=== PATIENT | male | born 1980 | race Caucasian/White ===

== ENCOUNTER 2021-07-10 20:10 | Inpatient (IN) | payer MEDICARE, MEDICAID, SELFPAY ==
[2021-07-10 21:29] VITALS: BMI 57.4
[2021-07-10 21:31] VITALS: BP 160/96; PULSE 70; RESP 19; TEMP 36.7; O2SAT 94
[2021-07-10 22:00] VITALS: BP 160/96; PULSE 70; RESP 19; TEMP 36.6; O2SAT 94
[2021-07-10] MEDS: nicotine 2 mg Gum BUCCAL (22:16)
[2021-07-11 03:35] VITALS: PULSE 82; PULSE 85; RESP 19; O2SAT 95
[2021-07-11] MEDS: nicotine 2 mg Gum BUCCAL ×7 (04:43→19:37)
[2021-07-11 06:00] VITALS: BP 119/77; PULSE 71; RESP 16; TEMP 36.8; O2SAT 97
[2021-07-11 06:44] LABS: Glucose Point of Care 182 mg/dL (70-110)
--- NOTE | 2021-07-11 10:57 | PM.NHP ---
Providers/Chief Complaint Admitting Physician: Enrique Francois MD Chief Complaint: SI HPI NPU History of Present Illness Fabian Valdovinos is a 40 year old male with a history of psychotic illness transferred from the [facility] ED due to psychosis, suicidal and homicidal ideation, and plans to overdose on [place] and EtOH. He was medically stabilized and cleared at [facility] ED prior to transfer. The ED note states: Fabian Valdovinos is a 40-year-old male with a history of DM, HLD, HTN, and morbid obesity presenting to the ED via POV C/0 SI/HI onset today. Patient also complains of chronic memory loss, insomnia, DAVILA, violent outbursts and dizziness. Patient reports of current Rx of Lexapro, gabapentin, and Abilify. Patient currently reports of plan of suicide by overdose of Victoria and EtOH. He reports of recent hospitalization in [place] due to psychotic event. Patient denies fever, cough, or any other pertinent complaint. Additional information from [facility] includes EKG which was sinus rhythm, probable left atrial enlargement, and nonspecific T abnormalities, in the inferior leads. Head CT on 07/08/2021 shows no acute intracranial abnormality. Labs: CMP shows glucose of 180 and is otherwise normal. Salicylate, acetaminophen, and ethanol levels were all negative. SARS-CoV-2 test was negative. TSH was normal at 2.370. Urine drug screen was negative for all substances tested. CBC was normal. Troponin was negative. The [facility] ED also sent in affidavit from Guru Webster MD dated 07/10/2021 which states: Patient presented to the emergency department for evaluation of homicidal thoughts, and some tangential thinking. He does warrant emergency psychiatric stabilization for his own safety, and the safety of the community. The patient describes his understanding of his issues as follows. He says that he has severe insomnia due to a thought process that would not slow down. He has the thought that people can read his mind, and that they could shake his hand and electrocuted him. He feels that people are out to get him. He feels that shooting himself is the only way of the suffering caused by the symptoms. 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 He says the position has a split shift, working some in the morning and some in the afternoon. He does not feel he is able to manage the stress of this request. He says he stopped drinking alcohol, using medical marijuana and smoking cigarettes 11 days ago. He reports psychiatric diagnoses of bipolar 2 disorder with psychosis, inattentive ADHD, KEELEY, and PTSD. He estimates he has had 30 or more hospitalizations since the age of 20. He was last hospitalized in [place] about a year ago for psychosis. Psychiatric history: As above. Substance use history: As above. Family history: Patient says that his father abused alcohol and was violent. Otherwise he denies mental health or addiction issues on either side of the family and denies suicide attempts or completions in the family. Psychosocial history: He says he was raised in both [place], [place] and then graduated from high school in [place], [place]. He attended some college. 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 He feels he is unable to work at this point and wants to apply for disability. He says he has never been and has no children. Legal history: No legal difficulties. Medical history: Morbid obesity, diabetes mellitus, hypertension, hypothyroidism, hypercholesterolemia. Meds NPU Home Medications Medication Instructions Recorded Confirmed Last Taken Type albuterol sulfate 2 puff INHALATION QID 07/10/21 07/10/21 07/10/21 08:00 History amlodipine 10 mg PO DAILY 07/10/21 07/10/21 07/10/21 08:00 History aripiprazole 30 mg PO DAILY 07/10/21 07/10/21 07/08/21 08:00 History ozcvoexkfv-gzubiiktsbvpa-tmsl 1 cap PO BID 07/10/21 07/10/21 07/08/21 08:00 History cyclobenzaprine 5 mg PO TID 07/10/21 07/10/21 06/26/21 History 08 docusate sodium 100 mg PO BID 07/10/21 07/10/21 07/10/21 08:00 History empagliflozin [Jardiance] 25 mg PO DAILY 07/10/21 07/10/21 07/09/21 08:00 History fluvoxamine 50 mg PO BID 07/10/21 07/10/21 07/10/21 08:00 History furosemide 40 mg PO DAILY 07/10/21 07/10/21 07/10/21 08:00 History gabapentin 300 mg PO BID 07/10/21 07/10/21 07/10/21 08:00 History guanfacine 1 mg PO DAILY 07/10/21 07/10/21 07/09/21 20:00 History hydrocodone-acetaminophen 1 tab PO BID 07/10/21 07/10/21 06/26/21 08:00 History liraglutide [Victoza 3-Paul] mg SUBCUT DIRECTED 07/10/21 07/07/21 08:00 History lisinopril 40 mg PO DAILY 07/10/21 07/10/21 07/10/21 08:00 History metformin 1,000 mg PO BID 07/10/21 07/10/21 07/10/21 08:00 History mirtazapine 30 mg PO DAILY 07/10/21 07/10/21 07/09/21 20:00 History naloxone [Narcan] 1 spray INTRANASAL PRN 07/10/21 07/10/21 Unknown History orphenadrine citrate 100 mg PO BID PRN 07/10/21 07/10/21 Unknown History pantoprazole 20 mg PO DAILY 07/10/21 07/10/21 07/10/21 08:00 History rizatriptan 10 mg TRANSLINGUAL DIRECTED 07/10/21 07/10/21 07/07/21 08:00 History simvastatin 20 mg PO DAILY 07/10/21 07/10/21 07/09/21 17:00 History thyroid (pork) [Tilly Thyroid] 120 mg PO DAILY 07/10/21 07/10/21 07/08/21 06:00 History Allergies Allergy/AdvReac Type Severity Reaction Status Date / Time haloperidol [From Haldol] Allergy Severe ALGY-Difficulty Verified 07/10/21 23:24 Breathing fluphenazine [From Prolixin] Allergy ALGY-Difficulty Verified 07/10/21 23:26 Breathing paliperidone [From Invega] Allergy ALGY-Difficulty Verified 07/10/21 23:25 Breathing ziprasidone [From Geodon] Allergy ALGY-Difficulty Verified 07/10/21 23:25 Breathing Mental Status Exam MSE Comments: I met with the patient in the day room. He was dressed in hospital scrubs and appropriately groomed, and noticeably overweight. He was calm, cooperative, interactive, and made good eye contact. No psychomotor agitation or retardation. Speech is at a regular rate and rhythm, normal volume, good articulation, not pressured. Alert, oriented to person, place, time, situation. Attention and concentration were intact. Able to spell the word WORLD correctly forwards and backwards. Memory is intact. Remembers 3/3 words immediately and 3/3 at 3 minutes. He knows the names of the past 4 presidents. Mood is depressed and anxious, but he says he is feeling relieved now that he is in the hospital. Affect is pleasant. Thought process is logical and goal-directed. Thought content: Denies auditory and visual hallucinations. He has paranoid delusions of persecution and that people can read his mind. No current suicidal ideation in the hospital, but he was feeling acutely suicidal prior to admission. He is also reported to have had homicidal ideation. Insight and judgment appear to be fair. Vitals/I&O/Wt Last Vital Signs Temp 98.3 F 07/11/21 06:00 Pulse 71 07/11/21 06:00 Resp 16 07/11/21 06:00 BP 119/77 07/11/21 06:00 Pulse Ox 97 07/11/21 06:00 Weight last 48 hrs Weight 186.88 kg A&P Assessment and plan (1) Bipolar disorder with psychotic features: Status: Acute (2) Suicidal ideation: Status: Acute (3) Homicidal ideation: Status: Acute Additional A&P Information Fabian Valdovinos is a 40 year old male with a history of psychotic illness transferred from the [facility] ED due to psychosis, suicidal and homicidal ideation, and plans to overdose on Victoria and EtOH. RECOMMENDATION AND PLAN: 1. Continue current medication. He was started on Latuda, in addition to Abilify. We will titrate Latuda up, and then taper Abilify down. 2. Continue every 15 minute checks for safety. 3. Encourage individual, group and milieu therapies. 4. Encourage sober living treatment after discharge at the highest level of care to which he is willing to commit. Attestations NPU Medical Necessity Statement*: Psychiatric hospitalization is medically necessary to prevent access to lethal means, to reevaluate medication, and to coordinate a safe discharge. Patient will be in the hospital for over 2 midnights. Likely length of stay is 3 to 5 days. Coding Level of Care Code Acute Preschool Teacher for [facility] Fwd Diagnoses Bipolar disorder with psychotic features F31.9 Suicidal ideation R45.851 Homicidal ideation R45.208
--- NOTE | 2021-07-11 12:19 | NPU.GN ---
[facility] Group Topic:Thought Processing General Mood of Group: The patient come to group willingly. The patient was on time, good hygiene and properly dressed. The group discussed how the mind thinks and discussed negative thoughts and how we process those negative thoughts. The patient did participate in the group. The patient were all gave a thought table to be able to list specific negative thoughts and were able to come up with different ways to cope with those thoughts. The group was able to go outside for fresh air, which in turn helped the group to open up more. Information about the NPU was discussed, information about the routine for NPU, the doctor and nursing staff as well as forensic social worker and how they each play a part in their care while here. 96 hr holds and 21 day holds were also explained as well.
[2021-07-11 14:00] VITALS: BP 168/104; PULSE 72; RESP 18; TEMP 36.1; O2SAT 92
[2021-07-11] MEDS: cyclobenzaprine 10 mg Tablet 5 MG PO (17:16)
[2021-07-11] MEDS: docusate sodium 100 mg Capsule PO (17:16)
[2021-07-11] MEDS: gabapentin 300 mg Capsule PO (17:16)
[2021-07-11] MEDS: metformin 500 mg Tablet 1000 MG PO (17:17)
[2021-07-11] MEDS: hyDROXYzine 25 mg Capsule 50 MG PO (18:56)
--- NOTE | 2021-07-11 18:56 | PC.NURSE ---
Administered Vistaril 50mg PO for patient C/O increasing anxiety.
[2021-07-11] MEDS: trazodone 50 mg Tablet PO (19:38)
[2021-07-11 20:06] VITALS: BP 151/90; PULSE 75; RESP 20; TEMP 37.3; O2SAT 95
[2021-07-11 20:17] LABS: Glucose Point of Care 138 mg/dL (70-110)
[2021-07-12 06:00] VITALS: BP 137/83; PULSE 76; RESP 16; TEMP 36.5; O2SAT 97
[2021-07-12] MEDS: nicotine 2 mg Gum BUCCAL ×7 (06:46→21:02)
[2021-07-12 06:54] LABS: Glucose Point of Care 164 mg/dL (70-110)
[2021-07-12] MEDS: gabapentin 300 mg Capsule PO ×2 (08:24→17:34)
[2021-07-12] MEDS: ARIPiprazole 30 mg Tablet PO (08:24)
[2021-07-12] MEDS: FUROsemide 40 mg Tablet PO (08:24)
[2021-07-12] MEDS: lisinopril 20 mg Tablet 40 MG PO (08:24)
[2021-07-12] MEDS: docusate sodium 100 mg Capsule PO ×2 (08:24→17:34)
[2021-07-12] MEDS: metformin 500 mg Tablet 1000 MG PO ×2 (08:24→17:34)
[2021-07-12] MEDS: amlodipine 10 mg Tablet PO (08:24)
[2021-07-12] MEDS: guanfacine 1 mg Tablet PO (08:24)
[2021-07-12] MEDS: pantoprazole DR 40 mg Tablet PO (08:25)
[2021-07-12] MEDS: atorvastatin 40 mg Tablet 20 MG PO (08:25)
[2021-07-12] MEDS: thyroid 60 mg Tablet 120 MG PO (10:03)
[2021-07-12 14:00] VITALS: BP 138/108; PULSE 87; RESP 20; TEMP 36.8; O2SAT 98
--- NOTE | 2021-07-12 15:39 | PM.NPN ---
Subjective NPU Subjective: Interval history: I met with the treatment team to discuss the patient's progress. Mae says he talked in group about some cognitive difficulties he has had throughout his life. They say he is not wanting to transition to a longer term care facility. The patient says that he is feeling better and feels safe here. He says he still needs to make sure the electric circuit box in my head does not turn on. He says his mood is better. He still feels anxious, and would like his Vistaril scheduled, because it does help him for anxiety. He slept okay with trazodone. He does report that he has had difficulty concentrating and Strattera 40 mg daily has helped him in the past. He denies side effects from his current medication. He denies suicidal and homicidal ideation. He says that he has not had voices or seeing things in the last day. Mental Status Exam MSE Comments: I met with the patient in the hallway. He was dressed in hospital scrubs and appropriately groomed, and noticeably overweight. He was calm, friendly cooperative, interactive, and made good eye contact. No psychomotor agitation or retardation. Speech is at a regular rate and rhythm, at a normal volume, deliberate with good articulation, not pressured. Alert, oriented to person, place, time, situation. Attention and concentration were intact to exam. Memory is adequate for the interview. Mood is improving. Affect is serious but pleasant. Thought process is logical and goal-directed. Thought content: Denies auditory and visual hallucinations. He has paranoid delusions of persecution and that people can read his mind and perhaps electrocute him. No current suicidal ideation in the hospital, but he was feeling acutely suicidal prior to admission. He is also reported to have had homicidal ideation. Insight and judgment appear to be fair. Vitals/I&O/Wt Last Vital Signs Temp 97.7 F 07/12/21 20:29 Pulse 88 07/12/21 20:50 Resp 16 07/12/21 20:50 BP 136/79 07/12/21 20:29 Pulse Ox 94 07/12/21 20:50 A&P Assessment and plan (1) Bipolar disorder with psychotic features: Status: Acute (2) Homicidal ideation: Status: Acute (3) Suicidal ideation: Status: Acute Additional A&P Information Fabian Valdovinos is a 40 year old male with a history of psychotic illness transferred from the [facility] ED due to psychosis, suicidal and homicidal ideation, and plans to overdose on [place] and EtOH. RECOMMENDATION AND PLAN: 1. Continue current medication. Scheduled Vistaril 50 mg 3 times daily for anxiety. We are considering adding Strattera for ADHD symptoms. He was started on Latuda, in addition to Abilify. We will titrate Latuda up, and then taper Abilify down. 2. Continue every 15 minute checks for safety. 3. Encourage individual, group and milieu therapies. 4. Encourage sober living treatment after discharge at the highest level of care to which he is willing to commit. Attestations NPU Medical Necessity Statement*: Psychiatric hospitalization is medically necessary to prevent access to lethal means, to reevaluate medication, and to coordinate a safe discharge. Likely length of stay is 2 to 4 days. Coding Level of Care Code Acute Junior Network Administrator for [facility] Diagnoses Bipolar disorder with psychotic features F31.9 Homicidal ideation R45.850 Suicidal ideation R45.856
[2021-07-12 17:20] VITALS: PULSE 94; RESP 18; O2SAT 97
[2021-07-12] MEDS: albuterol 8 gm MDI 2 PUFF INHALATION ×2 (17:20→20:50)
[2021-07-12] MEDS: hyDROXYzine 25 mg Capsule 50 MG PO ×2 (17:34→21:01)
[2021-07-12 20:29] VITALS: BP 136/79; PULSE 83; RESP 17; TEMP 36.5; O2SAT 96
[2021-07-12 20:50] VITALS: PULSE 88; RESP 16; O2SAT 94
[2021-07-12] MEDS: trazodone 50 mg Tablet PO (21:01)
--- NOTE | 2021-07-12 21:15 | PC.NURSE ---
pt requested sleep med be given with HS med, Trazodone 50mg po given.
--- NOTE | 2021-07-12 22:00 | PC.NURSE ---
pt resting quietly with both eyes closed, c-pap in place, 1:1 sitter at side.
[2021-07-13] VITALS (7 sets, daily range): BP systolic 136–146; BP diastolic 79–83; PULSE 84–99; RESP 16–18; TEMP 36.5–36.6; O2SAT 94–98
[2021-07-13] MEDS: nicotine 2 mg Gum BUCCAL ×3 (04:47→21:50)
[2021-07-13] MEDS: albuterol 8 gm MDI 2 PUFF INHALATION ×3 (08:11→21:50)
[2021-07-13] MEDS: gabapentin 300 mg Capsule PO ×2 (08:14→17:26)
[2021-07-13] MEDS: docusate sodium 100 mg Capsule PO ×2 (08:14→17:26)
[2021-07-13] MEDS: ARIPiprazole 30 mg Tablet PO (08:14)
[2021-07-13] MEDS: thyroid 60 mg Tablet 120 MG PO (08:14)
[2021-07-13] MEDS: lisinopril 20 mg Tablet 40 MG PO (08:14)
[2021-07-13] MEDS: FUROsemide 40 mg Tablet PO (08:14)
[2021-07-13] MEDS: metformin 500 mg Tablet 1000 MG PO ×2 (08:14→17:26)
[2021-07-13] MEDS: pantoprazole DR 40 mg Tablet PO (08:15)
[2021-07-13] MEDS: atorvastatin 40 mg Tablet 20 MG PO (08:15)
[2021-07-13] MEDS: hyDROXYzine 25 mg Capsule 50 MG PO ×3 (08:15→21:36)
[2021-07-13] MEDS: amlodipine 10 mg Tablet PO (08:15)
[2021-07-13] MEDS: guanfacine 1 mg Tablet PO (08:16)
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
[2021-07-14 05:23] VITALS: BP 146/83; PULSE 99; RESP 18; TEMP 36.6; O2SAT 98
[2021-07-14 06:15] VITALS: BP 146/83; PULSE 99; RESP 18; TEMP 36.6; O2SAT 98
[2021-07-14] MEDS: guanfacine 1 mg Tablet PO (08:26)
[2021-07-14] MEDS: nicotine 2 mg Gum BUCCAL ×3 (08:26→15:56)
[2021-07-14] MEDS: hyDROXYzine 25 mg Capsule 50 MG PO ×2 (08:27→15:56)
[2021-07-14] MEDS: thyroid 60 mg Tablet 120 MG PO (08:27)
[2021-07-14] MEDS: gabapentin 300 mg Capsule PO (08:27)
[2021-07-14] MEDS: atorvastatin 40 mg Tablet 20 MG PO (08:27)
[2021-07-14] MEDS: metformin 500 mg Tablet 1000 MG PO (08:27)
[2021-07-14] MEDS: docusate sodium 100 mg Capsule PO (08:27)
[2021-07-14] MEDS: amlodipine 10 mg Tablet PO (08:27)
[2021-07-14] MEDS: lisinopril 20 mg Tablet 40 MG PO (08:27)
[2021-07-14] MEDS: pantoprazole DR 40 mg Tablet PO (08:27)
[2021-07-14] MEDS: FUROsemide 40 mg Tablet PO (08:27)
[2021-07-14] MEDS: ARIPiprazole 30 mg Tablet PO (08:27)
[2021-07-14] MEDS: albuterol 8 gm MDI 2 PUFF INHALATION ×2 (09:40→13:44)
[2021-07-14 09:41] VITALS: PULSE 94; RESP 17; O2SAT 97
--- NOTE | 2021-07-14 12:39 | PM.NDC ---
Diagnoses at Discharge Discharge Diagnosis (1) Bipolar disorder with psychotic features: Status: Acute (2) Homicidal ideation: Status: Resolved (3) Suicidal ideation: Status: Acute Reason for Visit Reason for Visit: SI Brief History: Fabian Valdovinos is a 40 year old male with a history of psychotic illness transferred from the [facility] ED due to psychosis, suicidal and homicidal ideation, and plans to overdose on [place] and EtOH. He was medically stabilized and cleared at [facility] ED prior to transfer. The ED note states: Fabian Valdovinos is a 40-year-old male with a history of DM, HLD, HTN, and morbid obesity presenting to the ED via POV C/0 SI/HI onset today. Patient also complains of chronic memory loss, insomnia, DAVILA, violent outbursts and dizziness. Patient reports of current Rx of Lexapro, gabapentin, and Abilify. Patient currently reports of plan of suicide by overdose of [place] and EtOH. He reports of recent hospitalization in [place] due to psychotic event. Patient denies fever, cough, or any other pertinent complaint. Additional information from [facility] includes EKG which was sinus rhythm, probable left atrial enlargement, and nonspecific T abnormalities, in the inferior leads. Head CT on 07/08/2021 shows no acute intracranial abnormality. Labs: CMP shows glucose of 180 and is otherwise normal. Salicylate, acetaminophen, and ethanol levels were all negative. SARS-CoV-2 test was negative. TSH was normal at 2.370. Urine drug screen was negative for all substances tested. CBC was normal. Troponin was negative. The [facility] ED also sent in affidavit from Guru Webster MD dated 07/10/2021 which states: Patient presented to the emergency department for evaluation of homicidal thoughts, and some tangential thinking. He does warrant emergency psychiatric stabilization for his own safety, and the safety of the community. The patient describes his understanding of his issues as follows. He says that he has severe insomnia due to a thought process that would not slow down. He has the thought that people can read his mind, and that they could shake his hand and electrocuted him. He feels that people are out to get him. He feels that shooting himself is the only way of the suffering caused by the symptoms. 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 He says the position has a split shift, working some in the morning and some in the afternoon. He does not feel he is able to manage the stress of this request. He says he stopped drinking alcohol, using medical marijuana and smoking cigarettes 11 days ago. He reports psychiatric diagnoses of bipolar 2 disorder with psychosis, inattentive ADHD, KEELEY, and PTSD. He estimates he has had 30 or more hospitalizations since the age of 20. He was last hospitalized in [place] about a year ago for psychosis. Psychiatric history: As above. Substance use history: As above. Family history: Patient says that his father abused alcohol and was violent. Otherwise he denies mental health or addiction issues on either side of the family and denies suicide attempts or completions in the family. Psychosocial history: He says he was raised in [place], [place] and then graduated from high school in [place], [place]. He attended some college. 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 He feels he is unable to work at this point and wants to apply for disability. He says he has never been and has no children. Legal history: No legal difficulties. Medical history: Morbid obesity, diabetes mellitus, hypertension, hypothyroidism, hypercholesterolemia. Hospital Course Hospital Course The patient was admitted to the neuropsychiatric unit for definitive treatment of these issues. On the unit he slowly acclimated to the individual, group and milieu therapies. There were some mild psychotic symptoms present initially which resolved with the medication being restarted. He was receptive to treatment team recommendations and showed modest improvement and was able to contract for safety prior to discharge. During the hospitalization, patient had routine laboratory studies which were within normal limits except for few outliers. Additionally there was a general medical evaluation which was also within normal limits and revealed no new acute processes. Vistaril was changed to 50 mg 3 times a day on a scheduled basis. Discharge Summary: At the time of discharge, psychosis and lethality were denied. Mood and anxiety were well managed. Patient endorsed a plan to avoid all drugs of abuse and follow-up with the aftercare recommendations of the treatment team. Patient was evaluated and deemed to be absent credible lethality, and had achieved the maximum benefit from an inpatient hospitalization, so was discharged. Mental Status Exam MSE Comments: I met with the patient in the day room. He was dressed in hospital scrubs and appropriately groomed, and noticeably overweight. He was calm, friendly cooperative, interactive, and made good eye contact. No psychomotor agitation or retardation. Speech is at a regular rate and rhythm, at a normal volume, deliberate with good articulation, not pressured. Alert, oriented to person, place, time, situation. Attention and concentration were intact to exam. Memory is adequate for the interview. Mood is improving. Affect continues to be serious but pleasant. Thought process is logical and goal-directed. Thought content: Denies auditory and visual hallucinations. Paranoid delusions of persecution and that people are diminishing. No current suicidal ideation or homicidal ideation. Insight and judgment appear to be fair. Discharge Data Vitals: Last Vital Signs Temp 97.9 F 07/14/21 06:15 Pulse 94 07/14/21 09:41 Resp 17 07/14/21 09:41 BP 146/83 07/14/21 06:15 Pulse Ox 97 07/14/21 09:41 Discharge Plan Discharge Patient Disposition: Home Condition: Stable Prescriptions: New hydroxyzine pamoate 25 mg Capsule 50 mg PO TID 30 Days Qty: 180 RF: 0 Continued furosemide 40 mg tablet 40 mg PO DAILY 30 Days Qty: 30 RF: 0 pantoprazole 20 mg tablet,delayed release (DR/EC) 20 mg PO DAILY 30 Days Qty: 0 RF: 0 amlodipine 10 mg tablet 10 mg PO DAILY 30 Days Qty: 30 RF: 0 rizatriptan 10 mg tablet,disintegrating 10 mg translingual DIRECTED 30 Days Qty: 30 RF: 0 simvastatin 20 mg tablet 20 mg PO DAILY 30 Days Qty: 30 RF: 0 metformin 1,000 mg tablet 1,000 mg PO BID 30 Days Qty: 60 RF: 0 guanfacine 1 mg tablet 1 mg PO DAILY 30 Days Qty: 30 RF: 0 orphenadrine citrate 100 mg tablet extended release 100 mg PO BID PRN (Reason: Muscle Spasm) 30 Days Qty: 60 RF: 0 docusate sodium 100 mg capsule 100 mg PO BID 30 Days Qty: 60 RF: 0 gabapentin 300 mg capsule 300 mg PO BID 30 Days Qty: 60 RF: 0 fluvoxamine 50 mg tablet 50 mg PO BID 30 Days Qty: 60 RF: 0 albuterol sulfate 90 mcg/actuation HFA aerosol inhaler 2 puff INHALATION QID 30 Days Qty: 8.5 RF: 0 lisinopril 40 mg tablet 40 mg PO DAILY 30 Days Qty: 30 RF: 0 aripiprazole 30 mg tablet 30 mg PO DAILY 30 Days Qty: 30 RF: 0 cyclobenzaprine 5 mg tablet 5 mg PO TID 30 Days Qty: 90 RF: 0 Phyllis Thyroid 120 mg tablet 120 mg PO DAILY 30 Days Qty: 30 RF: 0 Jardiance 25 mg tablet 25 mg PO DAILY 30 Days Qty: 30 RF: 0 Discontinued qfympsfybe-jjdbtzzrwxlpk-kerg 50-300-40 mg capsule 1 cap PO BID RF: 0 Narcan 4 mg/actuation spray,non-aerosol 1 spray INTRANASAL PRN RF: 0 Victoza 3-Paul 0.6 mg/0.1 mL (18 mg/3 mL) pen injector SUBCUT DIRECTED RF: 0 hydrocodone-acetaminophen 5-325 mg tablet 1 tab PO BID RF: 0 mirtazapine 30 mg tablet 30 mg PO DAILY RF: 0 Discharge Orders: Discharge Order (Routine); Ordered 07/14/21 Ordered By: Ketan Francois Referrals: [facility] [Other] - 07/26/21 7:45 am (face to face with provider) Discharge Diet: Usual diet Discharge Activity: Resume usual activity Patient Instructions: Generalized Anxiety Disorder (DC), Opioid Safety Discharge Attestations NPU Time Spent in Discharge Care*: less than 30 min Specific Discharge Activities: Specific discharge activities: educating patient, discussing with case folder/social workers/dc planners, documenting/other paperwork and evaluating patient/reviewing data Status at Discharge: Cognitive status at discharge: cognitively intact, Behavioral status at discharge: cooperative, Functional status at discharge: independent ambulation Overall status at discharge: patient is back to baseline Coding Level of Care Code Acute Chg FW DC note Diagnoses Bipolar disorder with psychotic features F31.9 Homicidal ideation R45.850 Suicidal ideation R45.851
[2021-07-14 12:49] VITALS: PULSE 94; RESP 17; O2SAT 97
== END 2021-07-14 16:30 | disposition home or self-care (01) | DRG 885 ==
PROVIDERS: Admitting Provider Psychiatry & Neurology Child & Adolescent Psychiatry; Visit Provider Psychiatry & Neurology Child & Adolescent Psychiatry
DX: F31.9 Bipolar disorder, unspecified (principal); R45.851 Suicidal ideations; Z68.43 Body mass index [BMI] 50.0-59.9, adult; F29 Unspecified psychosis not due to a substance or known physiological condition; R45.850 Homicidal ideations; G47.00 Insomnia, unspecified; E78.5 Hyperlipidemia, unspecified; I10 Essential (primary) hypertension; E11.9 Type 2 diabetes mellitus without complications; E66.01 Morbid (severe) obesity due to excess calories; E03.9 Hypothyroidism, unspecified; E78.00 Pure hypercholesterolemia, unspecified; F17.211 Nicotine dependence, cigarettes, in remission; Z91.19 Patient's noncompliance with other medical treatment and regimen; Z79.84 Long term (current) use of oral hypoglycemic drugs
CPT/HCPCS: 36416; 82962; 94640; J3535